=== PATIENT | female | born 1975 | race Native Hawaiian/Other Pacific Islander ===

== ENCOUNTER 2017-06-17 17:18 | Emergency (ER) | payer OTHER ==
[~2017-06-17] VITALS: Ht 167.6 cm; Wt 86.2 kg
[2017-06-17 17:50] LABS: PLATELET COUNT 185 K/uL (152-353)
[2017-06-17 17:57] LABS: POTASSIUM 4.2 mmol/L (3.6-5.2)
[2017-06-17 18:50] VITALS: BP 145/71; TEMP 98.6
== END 2017-06-17 18:51 | disposition home or self-care (01) ==
LOC: ED 17:18
DX: J06.9 Acute upper respiratory infection, unspecified (principal); J11.1 Influenza due to unidentified influenza virus with other respiratory manifestations
CPT/HCPCS: 36415; 80053; 85027; 87081; 87804; 87880; 96372; 99283; J0696; J1885